=== PATIENT | male | born 1970 | race African-American/Black ===

== ENCOUNTER 2018-08-19 11:48 | Emergency (ER) | payer OTHER ==
[~2018-08-19] VITALS: Ht 180.3 cm; Wt 82.6 kg
[2018-08-19 11:54] VITALS: BP 144/88
[2018-08-19] MEDS ORDERED: NKM (11:56)
--- NOTE | 2018-08-19 12:15 | Emergency Room Report ---
History of Present Illness General Chief Complaint: Pain Source: Patient Present Illness HPI Patient is a 48-year-old male [id number] who presented after increased right upper extremity pain. Patient reports having gradual onset of pain over the past few weeks. This had been constant and worse with specific movements. He denies any recent trauma. Patient states he had injured this at work several weeks ago but this had continued to bother him. He reports having some pain with radial deviation to the left wrist as well as when he spreads his fingers.Patient denies any other locations of discomfort. He denies any numbness or weakness. Allergies: Coded Allergies: No Known Allergies (Unverified , 08/19/18) Patient History Past Medical History: see triage record Reviewed Nursing Documentation: PMH: Agreed; PSxH: Agreed Nursing Documentation-PMH Past Medical History: No Stated History Review of Systems All Other Systems: negative except mentioned in HPI Physical Exam Vital Signs Date Time Temp Pulse Resp B/P (MAP) Pulse Ox O2 Delivery O2 Flow Rate FiO2 08/19/18 11:54 98.2 84 16 95 Room Air 08/19/18 11:54 144/88 General Appearance: well appearing, no apparent distress, alert, GCS 15 Head: normocephalic, atraumatic ENT: hearing grossly normal, normal voice Neck: full range of motion, supple Respiratory: no respiratory distress, speaking full sentences Cardiovascular #1: normal inspection Gastrointestinal: normal inspection Musculoskeletal: no calf tenderness Neurologic: normal inspection, alert, oriented x3, normal gait Psychiatric: mood/affect normal Skin: no rash Medical Decision Making ER Course Patient presented for wrist pain. Differential diagnosis included fracture, dislocation, scapphoid fracture, sprain, ganglion cyst, septic joint , arthritis, abscess among others. Patient has a benign exam and does not appear to require any further imaging or laboratory testing at this time. Patient does not appear to have any bony tenderness. He is he has good range of motion in all planes. Patient is noted to have some tenderness to several tendons. Patient does not have any restriction of motion or swelling.Patient appears to have a tendinitis due to chronic overuse. He is advised to rest the area. He was given an Kush wrap. He was given anti-inflammatory medications. He is advised he may need MRI if pain persist.Patient advised to follow-up with his primary care physician for recheck in 1 week. Last Vital Signs Date Time Temp Pulse Resp B/P (MAP) Pulse Ox O2 Delivery O2 Flow Rate FiO2 08/19/18 11:54 98.2 16 144/88 95 Room Air 08/19/18 11:54 84 Status: improved Disposition: HOME, SELF-CARE Condition: Stable Valentín Olson MD August 19, 2018 12:15
[2018-08-19] MEDS ORDERED: IBUPROFEN600 MG ORAL (12:16)
--- NOTE | 2018-08-19 13:00 | NUR ---
ER DISCHARGE NOTE: Patient is cleared to be discharged per ERMD, pt is aox4, on room air, with stable vital signs. pt was given dc and prescription instructions, pt was able to verbalize understanding, pt is able to ambulate with steady gait. pt took all belongings.
[2018-08-19 13:35] VITALS: BP 144/88
== END 2018-08-19 12:40 | disposition home or self-care (01) ==
LOC: EMR 12:34
DX: M79.621 Pain in right upper arm (principal); M25.532 Pain in left wrist
CPT/HCPCS: 99282